=== PATIENT | male | born 1960 | race Caucasian/White ===

== ENCOUNTER 2018-03-23 13:25 | Emergency (ER) | payer BC ==
[2018-03-23 15:04] VITALS: BP 126/75
[2018-03-23] MEDS ORDERED: Al Hydrox/Mg Hydrox/Simet LIQ* 30 ML UDC PO ONE (15:25)
[2018-03-23] MEDS ORDERED: Lidocaine 2% VISCOUS* 15 ML UDC PO ONE (15:28)
--- NOTE | 2018-03-23 15:48 | UC ---
Abdominal Pain Male HPI - HPI Summary HPI Summary: Pt presents with c/o epigastric pain that began 6 days ago. Pt denies chest pain , SOB, arm pain , jaw pain or worseing of pain with exertion. Pt states that he had worsening pain after eating pizza last night. Pt reports that he has generalized malaise and a hx of GERD that he has not taken any medication for GERD in the last 3 years. Pt denies recent alcohol use. Pt denies hx of gallbladder disease - History of Current Complaint Chief Complaint: UCGI Stated Complaint: NAUSEA,HEADACHE Time Seen by Provider: 03/23/18 14:54 Hx Obtained From: Patient Onset/Duration: Gradual Onset, Lasting Days, Still Present Timing: Constant Severity Initially: Mild Severity Currently: Mild Pain Intensity: 5 Location: Epigastric Radiates: No Character: Aching, Dull Aggravating Factor(s): Food Alleviating Factor(s): Nothing Associated Signs And Symptoms: Positive: Decreased Appetite, Nausea - Risk Factors Testicular Torsion: Negative Cardiac Risk Factors: Negative - Allergies/Home Medications Allergies/Adverse Reactions: Allergies Allergy/AdvReac Type Severity Reaction Status Date / Time No Known Allergies Allergy Verified 03/04/16 11:14 Home Medications: Home Medications Ibuprofen TAB* [Advil TAB*] 400 mg PO Q6H PRN 03/23/18 [History Confirmed ] PMH/Surg Hx/FS Hx/Imm Hx Previously Healthy: Yes GI/ History: Gastroesophageal Reflux - Surgical History Surgical History: Yes Surgery Procedure, Year, and Place: Appendectomy, 1964, [place] - Family History Known Family History: Negative: Cardiac Disease, Hypertension, Diabetes - Social History Occupation: Employed Full-time Lives: With Family Alcohol Use: Weekly Substance Use Type: None Smoking Status (MU): Former Smoker Length of Time of Smoking/Using Tobacco: approx 10 yrs Have You Smoked in the Last Year: No When Did the Patient Quit Smoking/Using Tobacco: ~1985 Review of Systems Constitutional: Fatigue Skin: Negative Eyes: Negative ENT: Negative Respiratory: Negative Cardiovascular: Negative Gastrointestinal: Abdominal Pain, Nausea Genitourinary: Negative Motor: Negative Neurovascular: Negative Musculoskeletal: Negative Neurological: Negative Psychological: Negative Is Patient Immunocompromised?: No All Other Systems Reviewed And Are Negative: Yes Physical Exam Triage Information Reviewed: Yes Appearance: Well-Appearing Vital Signs: Initial Vital Signs Temp 98.8 F 03/23/18 14:51 Pulse 75 03/23/18 14:51 Resp 16 03/23/18 14:51 BP 126/75 03/23/18 14:51 Pulse Ox 99 03/23/18 14:51 Vital Signs Reviewed: Yes Eye Exam: Normal ENT Exam: Normal Dental Exam: Normal Neck exam: Normal Respiratory Exam: Normal Cardiovascular Exam: Normal Abdomen Description: Positive: Other: - epigastric discomfort with palpation Bowel Sounds: Positive: Present Musculoskeletal Exam: Normal Neurological Exam: Normal Psychological Exam: Normal Skin Exam: Normal Abd Pain Male Course/Dx - Course Course Of Treatment: discussed my concerns for gallbladder didseas, GERD and possible cardiac disease. I instructed thew pt to go directly to the ER if symptoms do not improve or if they worsen. Pt verbalized understanding and agreed to plan of care. - Differential Dx/Clinical Impression Differential Diagnosis/HQI/PQRI: ACS, AMI, Gall Bladder Disease, Pancreatitis, Other - gastroenteritis Provider Diagnoses: epigastric pain Discharge - Sign-Out/Discharge Documenting (check all that apply): Patient Departure All imaging exams completed and their final reports reviewed: No Studies - Discharge Plan Condition: Stable Disposition: HOME Patient Education Materials: Epigastric Pain (ED) Referrals: Jose Leigh MD [Primary Care Provider] - As Soon As Possible Additional Instructions: PLEASE NOTE THAT IF YOUR SYMPTOMS DO NOT IMPROVE OR WORSEN, PLEASE GO DIRECTLY TO THE CLOSEST EMERGENCY ROOM SOON POSSIBLE. - Billing Disposition and Condition Condition: STABLE Disposition: Home
== END 2018-03-23 16:06 | disposition home or self-care (01) ==
LOC: UCCORT 13:25
DX: R10.13 Epigastric pain (principal); K21.9 Gastro-esophageal reflux disease without esophagitis; Z87.891 Personal history of nicotine dependence
CPT/HCPCS: 93005; 99212; A9270-GY; G0463

== ENCOUNTER 2018-09-15 18:42 | Emergency (ER) | payer BC ==
[2018-09-15 19:48] VITALS: BP 120/73
--- NOTE | 2018-09-15 20:15 | UC ---
Throat Pain/Nasal Olvin HPI - HPI Summary HPI Summary: C/O sore throat since this morning. Son/ diagnosed with strep. Some body aches/ no cough or congestion. - History of Current Complaint Stated Complaint: SORE THROAT Time Seen by Provider: 09/15/18 19:47 Hx Obtained From: Patient Onset/Duration: Sudden Onset, Lasting Days - 1, Still Present Severity: Mild Pain Intensity: 2 Cough: None Associated Signs & Symptoms: Positive: Dysphagia. Negative: Wheezing, Hoarseness, Sinus Discomfort, Nasal Discharge, Fever, Rash Related History: Seasonal Allergies - Allergies/Home Medications Allergies/Adverse Reactions: Allergies Allergy/AdvReac Type Severity Reaction Status Date / Time No Known Allergies Allergy Verified 09/15/18 19:46 Home Medications: Home Medications NK [No Home Medications Reported] 09/15/18 [History Confirmed 09/15/18] PMH/Surg Hx/FS Hx/Imm Hx Previously Healthy: Yes - Surgical History Surgical History: Yes Surgery Procedure, Year, and Place: Appendectomy, 1964, [place] - Family History Known Family History: Positive: Cardiac Disease Negative: Hypertension, Diabetes - Social History Occupation: Employed Full-time Lives: With Family Alcohol Use: Weekly Substance Use Type: None Smoking Status (MU): Former Smoker Length of Time of Smoking/Using Tobacco: approx 10 yrs Have You Smoked in the Last Year: No When Did the Patient Quit Smoking/Using Tobacco: ~1985 Review of Systems All Other Systems Reviewed And Are Negative: Yes Constitutional: Positive: Fatigue ENT: Positive: Sore Throat Musculoskeletal: Positive: Myalgia Is Patient Immunocompromised?: No Physical Exam Triage Information Reviewed: Yes Appearance: Well-Appearing, No Pain Distress, Well-Nourished Vital Signs: Initial Vital Signs Temp 98.3 F 09/15/18 19:46 Pulse 65 09/15/18 19:46 Resp 15 09/15/18 19:46 BP 120/73 09/15/18 19:46 Pulse Ox 99 09/15/18 19:46 Vital Signs Reviewed: Yes Eyes: Positive: Conjunctiva Clear ENT: Positive: Pharynx normal, TMs normal. Negative: Nasal congestion Neck: Positive: Supple, Nontender, No Lymphadenopathy Respiratory Exam: Normal Cardiovascular Exam: Normal Musculoskeletal Exam: Normal Neurological Exam: Normal Psychological Exam: Normal Skin Exam: Normal Throat Pain/Nasal Course/Dx - Differential Dx/Diagnosis Differential Diagnosis/HQI/PQRI: Pharyngitis, Tonsillitis, URI Provider Diagnosis: Acute pharyngitis Discharge - Sign-Out/Discharge Documenting (check all that apply): Patient Departure All imaging exams completed and their final reports reviewed: No Studies - Discharge Plan Condition: Stable Disposition: HOME Patient Education Materials: Pharyngitis (ED) Referrals: Brayan KLEIN,Pat Robles [Primary Care Provider] - - Billing Disposition and Condition Condition: STABLE Disposition: Home
== END 2018-09-15 20:26 | disposition home or self-care (01) ==
LOC: UCCORT 18:42
DX: J02.9 Acute pharyngitis, unspecified (principal); R53.83 Other fatigue; M79.10 Myalgia, unspecified site; Z87.891 Personal history of nicotine dependence
CPT/HCPCS: 87651; 99211; G0463